=== PATIENT | male | born 1965 | race African-American/Black ===

== ENCOUNTER 2016-07-02 03:44 | Emergency (ER) | payer OTHER ==
[~2016-07-02] VITALS: Ht 188 cm; Wt 113.4 kg
[2016-07-02 04:08] VITALS: BP 131/77
[2016-07-02] MEDS ORDERED: HYDR-971 PO (05:14)
--- NOTE | 2016-07-02 05:15 | PHYS DOC ---
Past Medical History Past Medical History: Hypertension Past Surgical History: No Surgical History Alcohol Use: Heavy Drug Use: None Adult General Chief Complaint Chief Complaint: UPPER EXTREMITY PAIN HPI HPI 50-year-old male who's having left shoulder discomfort and states this has been ongoing for the last 30 days. 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 He states he has decreased range of motion in the left shoulder but denies any traumatic injury. He also states he was sleeping irregularly on it tonight and developed some numbness and tingling down his left arm with difficulty to extend his wrist. Review of Systems Review of Systems Constitutional: Denies fever or chills [] Eyes: Denies change in visual acuity, redness, or eye pain [] HENT: Denies nasal congestion or sore throat [] Respiratory: Denies cough or shortness of breath [] Cardiovascular: No additional information not addressed in HPI [] GI: Denies abdominal pain, nausea, vomiting, bloody stools or diarrhea [] : Denies dysuria or hematuria [] Musculoskeletal: Denies back pain, has joint pain [] Integument: Denies rash or skin lesions [] Neurologic: Denies headache, focal weakness or sensory changes [] Endocrine: Denies polyuria or polydipsia [] Current Medications Current Medications Current Medications Medications (Trade) Dose Ordered Sig/Escobar Start Time Stop Time Status Last Admin Dose Admin Acetaminophen/ Hydrocodone Bitart (Lortab 5/325) 1 tab 1X ONCE 07/02/16 05:30 07/02/16 05:31 DC Allergies Allergies Allergies Coded Allergies Type Severity Reaction Last Updated Verified No Known Drug Allergies 03/28/13 No Physical Exam Physical Exam Constitutional: Well developed, well nourished, no acute distress, non-toxic appearance. [] HENT: Normocephalic, atraumatic, bilateral external ears normal, oropharynx moist, no oral exudates, nose normal. [] Eyes: PERRLA, EOMI, conjunctiva normal, no discharge. [] Neck: Normal range of motion, no tenderness, supple, no stridor. [] Cardiovascular:Heart rate regular rhythm, no murmur [] Lungs & Thorax: Bilateral breath sounds clear to auscultation [] Abdomen: Bowel sounds normal, soft, no tenderness, no masses, no pulsatile masses. [] Skin: Warm, dry, no erythema, no rash. [] Back: No tenderness, no CVA tenderness. [] Extremities: Tenderness to palpation of the left anterior shoulder with positive drop arm test, patient has difficulty extending his wrist, no cyanosis , no clubbing, ROM decreased in the left shoulder, no edema. [] Neurologic: Alert and oriented X 3, normal motor function, normal sensory function, no focal deficits noted. [] Psychologic: Affect normal, judgement normal, mood normal. [] Current Patient Data Vital Signs Vital Signs Date Time Temp Pulse Resp B/P Pulse Ox O2 Delivery O2 Flow Rate FiO2 07/02/16 04:08 98.2 71 16 131/77 97 Room Air 98.2 EKG EKG [] Radiology/Procedures Radiology/Procedures [] Course & Med Decision Making Course & Med Decision Making Pertinent Labs and Imaging studies reviewed. (See chart for details) This 50 yo male is presenting with symptoms fairly classic for shoulder impingement syndrome vs rotator cuff injury. There is no traumatic injury and I see no obvious indication for x-ray imaging. I will place the patient in a sling for comfort and provide him a short course of pain control with strict instruction to remain nonweightbearing on the left side. Work note will be provided. I will provide him follow-up with orthopedic surgeon next 2-3 days for likely shoulder MRI to rule out rotator cuff injury. Patient is very agreeable with this plan and was discharged without incident. Dragon Disclaimer Dragon Disclaimer This electronic medical record was generated, in whole or in part, using a voice recognition dictation system. Departure Departure Impression: Primary Impression: Shoulder impingement syndrome Disposition: 01 HOME, SELF-CARE Admitting Physician: Other Condition: STABLE Referrals: LESLI JARVIS MD (PCP) Patient Instructions: Rotator Cuff Injury Additional Instructions: Please follow up with the orthopedic surgeon in the next 2-3 days regarding your recent shoulder injury and remain in your sling until that time. Avoid any overuse injury. Take anti-inflammatories for your pain. Take your pain medication only when you are having symptoms. Avoid sleeping on the left side. Scripts Hydrocodone/Apap 5-325 ([place] 5-325 Tablet)1 Each Tablet1 Tab PO PRN Q6HRS PRN PAIN #10 TAB Prov:DELIA GUNN DO 07/02/16 DELIA GUNN DO Jul 02, 2016 05:14
[2016-07-02] MEDS ORDERED: HYDROCODONE/APAP 5/325MG TABLET. PO ONE (05:30)
== END 2016-07-02 05:24 | disposition home or self-care (01) ==
LOC: ER 03:44
DX: M75.42 Impingement syndrome of left shoulder (principal); I10 Essential (primary) hypertension
CPT/HCPCS: 99283-25

== ENCOUNTER 2018-12-26 15:46 | Emergency (ER) | payer OTHER ==
[~2018-12-26] VITALS: Ht 182.9 cm; Wt 104.3 kg
[~2018-12-26 15:46] MED LIST: HYDR-3164 PO
[2018-12-26 16:56] VITALS: BP 172/94
--- NOTE | 2018-12-26 17:07 | PHYS DOC ---
Past Medical History Past Medical History: Hypertension, Sciatica (NAPOLEON PATEL APRN) Past Surgical History: No Surgical History (NAPOLEON PATEL APRN) Alcohol Use: Heavy Drug Use: None (NAPOLEON PATEL APRN) Adult General Chief Complaint Chief Complaint: LOWER BACK PAIN OR INJURY HPI HPI Patient is a 53 year old male with history of hypertension, back pain with sciatica, who presents to the ED today complaining of 10 out of 10 right low back pain radiating to the right lower extremity that began today, patient denies any known injury. Denies any numbness or tingling to bilateral lower extremities, denies any loss of bowel bladder function. He states he has tried [id number] remedies with no improvement. (NAPOLEON PATEL APRN) Review of Systems Review of Systems Constitutional: Denies fever or chills [] GI: Denies abdominal pain, nausea, vomiting, bloody stools or diarrhea [] : Denies dysuria or hematuria [] Musculoskeletal: Reports right low back pain radiating to the right lower extremity Integument: Denies rash or skin lesions [] Neurologic: Denies headache, focal weakness or sensory changes [] All other systems were reviewed and found to be within normal limits, except as documented in this note. (NAPOLEON PATEL APRN) Allergies Allergies Allergies Coded Allergies Type Severity Reaction Last Updated Verified No Known Drug Allergies 03/28/13 No (FORD LEES MD) Physical Exam Physical Exam Constitutional: Well developed, well nourished, no acute distress, non-toxic appearance. [] Abdomen: Bowel sounds normal, soft, no tenderness, no masses, no pulsatile masses. [] Skin: Warm, dry, no erythema, no rash. [] Back: No tenderness, no CVA tenderness. [] Extremities: mild SI joint tenderness on the right with positive straight leg raises, no cyanosis, no clubbing, ROM intact, no edema. [] Neurologic: Alert and oriented X 3, normal motor function, normal sensory function, no focal deficits noted. [] Psychologic: Affect normal, judgement normal, mood normal. [] (NAPOLEON PATLE APRN) Current Patient Data Vital Signs Vital Signs Date Time Temp Pulse Resp B/P (MAP) Pulse Ox O2 Delivery O2 Flow Rate FiO2 12/26/18 16:56 97.8 69 16 172/94 (120) 98 Room Air 97.8 (FORD LEES MD) EKG EKG [] (NAPOLEON PATEL APRN) Radiology/Procedures Radiology/Procedures [] (NAPOLEON PATEL APRN) Course & Med Decision Making Course & Med Decision Making Pertinent Labs and Imaging studies reviewed. (See chart for details) This is a 53-year-old male patient who presents to the ED today with exacerbation of sciatica. No cauda equina syndrome symptoms. Discharged to home, f/u with PCP or Dr. Maxwell in 1 week. (NAPOLEON PATEL APRN) Course & Med Decision Making Staff Physician Addendum: I was working in the ER during the course of this patient's visit. I was available for consultation as needed, but I was not directly involved in the care of this patient. (FORD LEES MD) Dragon Disclaimer Dragon Disclaimer This electronic medical record was generated, in whole or in part, using a voice recognition dictation system. (NAPOLEON PATEL APRN) Departure Departure Impression: Primary Impression: Sciatica of right side Disposition: 01 HOME, SELF-CARE Condition: STABLE Referrals: LESLI JARVIS MD (PCP) follow up in one week TORI MAXWELL MD follow up in one week Patient Instructions: Sciatica with [facility] Additional Instructions: Tried to apply heat to the affected area on your low back. Try to do the exercises provided. Follow-up with the provided doctors. Scripts Naproxen (NAPROXEN) 375 Mg Tablet 1 TAB PO BID, #20 TAB 0 Refills Prov: NAPOLEON PATEL APRN 12/26/18 Cyclobenzaprine Hcl (CYCLOBENZAPRINE HCL) 10 Mg Tablet 1 TAB PO TID, #30 TAB Prov: NAPOLEON PATEL APRN 12/26/18 Methylprednisolone (MEDROL) 4 Mg Tab.ds.pk 1 PKG PO UD, #1 PKG Prov: NAPOLEON PATEL APRN 12/26/18 Hydrocodone/Apap 5-325 (NORCO 5-325 TABLET) 1 Each Tablet 1 TAB PO Q6HRS, #14 TAB Prov: NAPOLEON PATEL APRN 12/26/18 NAPOLEON PATEL APRN Dec 26, 2018 17:07 FORD LEES MD Dec 27, 2018 01:22
[2018-12-26] MEDS ORDERED: METH4TAB2 PO (17:14)
[2018-12-26] MEDS ORDERED: NAPR-695 PO (17:14)
[2018-12-26] MEDS ORDERED: HYDR-3164 PO (17:14)
[2018-12-26] MEDS ORDERED: CYCL10TA2 PO (17:14)
== END 2018-12-26 17:23 | disposition home or self-care (01) ==
LOC: ER 15:46
DX: M54.41 Lumbago with sciatica, right side (principal); I10 Essential (primary) hypertension
CPT/HCPCS: 99283

== ENCOUNTER 2020-03-31 17:45 | Emergency (ER) | payer OTHER ==
[~2020-03-31] VITALS: Ht 182.9 cm; Wt 118.0 kg
[~2020-03-31 17:45] MED LIST changes: +CYCL10TA2 PO; +METH4TAB2 PO; +NAPR-695 PO
[2020-03-31 19:01] VITALS: BP 148/99
== END 2020-03-31 19:30 | disposition left against medical advice (07) ==
LOC: ER 17:45
DX: R42 Dizziness and giddiness (principal); R11.0 Nausea; Z53.21 Procedure and treatment not carried out due to patient leaving prior to being seen by health care provider